=== PATIENT | female | born 1990 | race Caucasian/White ===

== ENCOUNTER → 2023-06-09 07:35 | Outpatient (CLI) | payer OTHER, SELFPAY ==
[2023-06-09 08:44] LABS: Add Manual Diff / Slide Review NO; Basophils Absolute Auto 0 /uL (0-100); Basophils Percent Auto 1.3 % (0-2); Eosinophils Absolute Auto 200 /uL (0-450); Eosinophils Percent Auto 6.8 % (2-4); Hematocrit 39.6 % (36-46); Hemoglobin 13.5 g/dL (12.0-16.0); Lymphocytes Absolute Auto 1700 /uL (1100-4500); Mean Corpuscular Hemoglobin 30.5 PG (26-34); Mean Corpuscular Volume 89.8 fL (80-100); Monocytes Absolute Auto 300 /uL (0-900); Neutrophils Absolute Auto 1300 /uL (1500-7000); Neutrophils Percent Auto 35.9 % (50-75); Platelet Count 226 X10^3/uL (150-400); Red Blood Cell Count 4.41 X10^6/uL (4.0-5.2); Red Cell Distribution Width 12.6 % (11.6-14.8); White Blood Cell Count 3.6 X10^3/uL (4.5-11.0)
[2023-06-09 09:05] LABS: Alanine Aminotransferase 12 IU/L (<35); Albumin 4.3 g/dL (3.5-5.0); Albumin Globulin Ratio 1.5 (1.0-2.8); Alkaline Phosphatase 66 U/L (38-126); Aspartate Aminotransferase 23 IU/L (14-36); Bilirubin Total 0.7 mg/dL (0.2-1.3); Blood Urea Nitrogen 16 mg/dL (7-17); Calcium 9.2 mg/dL (8.4-10.2); Carbon Dioxide 24 mmol/L (22-32); Chloride 107 mmol/L (98-107); Cholesterol 157 mg/dL (140-199); Estimated Glomerular Filt Rate > 60 mL/min (>60); Globulin 2.9 g/dL (1.7-4.1); Glucose 82 mg/dL (70-100); HDL Cholesterol 57 mg/dL (40-60); HEMOLYSIS < 15 (0-50); LDL Cholesterol Calculated 87 mg/dL (<100); Sodium 137 mmol/L (137-145); Total Protein 7.2 g/dL (6.3-8.2); Triglycerides 66 mg/dL (35-150)
[2023-06-09 09:06] LABS: Potassium 5.5 mmol/L (3.4-5.1)
== END ==
PROVIDERS: PCP Family Medicine; Referring Provider Family Medicine; Visit Provider Family Medicine
DX: Z76.89 Persons encountering health services in other specified circumstances (principal); Z13.9 Encounter for screening, unspecified
CPT/HCPCS: 36415; 80053; 80061; 84443; 85025

== ENCOUNTER → 2024-06-16 07:13 | Outpatient (CLI) | payer OTHER, SELFPAY ==
--- NOTE | 2024-06-16 07:14 | DI.US.S_ITS ---
PROCEDURE: US PELVIC COMPLETE INDICATIONS: fertility concern TECHNIQUE: Real-time scanning was performed of the pelvic organs, with image documentation. Additional endovaginal scanning was necessary due to incomplete visualization of the adnexal and endometrial structures by transabdominal scanning. COMPARISON: None. FINDINGS: Uterus: Uterus is anteverted and normal in size at 7.8 x 5.2 x 4.0 cm. The myometrium is homogeneous. The endometrium measures 7 mm combined thickness. Trilaminar appearance of the endometrium. Ovaries: The right ovary measures 3.3 x 2.6 x 2.1 cm, with a calculated ovarian volume of 9.4 cc. The left ovary measures 3.0 x 2.6 x 2.3 cm, with a calculated ovarian volume of 9.4 cc. The ovaries have a normal sonographic appearance. Greater than 12 follicles can be seen in each ovary. No adnexal masses are seen. Probable involuting 1.5 cm right ovarian corpus luteal cyst. Other: Trace pelvic free fluid is considered physiologic. IMPRESSION: Greater than 12 small follicles in each ovary, which can be seen in setting of polycystic ovarian syndrome when associated with appropriate clinical and laboratory findings. Approved by: Estrada Bardales M.D. on 06/16/2024 at 13:05
== END ==
PROVIDERS: PCP Family Medicine; Referring Provider Family Medicine; Visit Provider Family Medicine
DX: N97.9 Female infertility, unspecified (principal)
CPT/HCPCS: 76830; 76856

== ENCOUNTER → 2024-06-23 07:07 | Outpatient (CLI) | payer OTHER, SELFPAY ==
[2024-06-23 08:06] LABS: Hemoglobin A1C% w Est Avg Glu 4.8 % (4.0-6.0)
[2024-06-24 07:41] LABS: Insulin Level Total 7.1 uIU/mL (2.6-24.9)
[2024-07-07 08:41] LABS: Percent Free Testosterone 2.65 % (0.50-2.80); Testosterone Free 0.78 ng/dL (0.10-0.85); Testosterone Total 29.5 ng/dL (10.0-55.0)
== END ==
PROVIDERS: PCP Family Medicine; Referring Provider Family Medicine; Visit Provider Family Medicine
DX: E28.2 Polycystic ovarian syndrome (principal); Z13.1 Encounter for screening for diabetes mellitus
CPT/HCPCS: 36415; 83036; 83525; 84402; 84403

== ENCOUNTER → 2024-08-25 16:24 | Outpatient (CLI) | payer OTHER, SELFPAY ==
[2024-08-25 18:14] LABS: HCG Quantitative /Beta subunit < 2.39 mIU/mL
== END ==
LOC: LAB 16:26
PROVIDERS: PCP Family Medicine; Referring Provider Obstetrics & Gynecology; Visit Provider Obstetrics & Gynecology
DX: Z34.90 Encounter for supervision of normal pregnancy, unspecified, unspecified trimester (principal)
CPT/HCPCS: 36415; 84702

== ENCOUNTER → 2024-12-15 09:05 | Outpatient (CLI) | payer OTHER, SELFPAY ==
[2024-12-19 19:36] LABS: Gest Age on Col Date 16.0 weeks (.); OSBR Risk 1IN 181 (.)
== END ==
PROVIDERS: PCP Family Medicine; Referring Provider Obstetrics & Gynecology; Visit Provider Obstetrics & Gynecology
DX: Z36.0 Encounter for antenatal screening for chromosomal anomalies (principal)
CPT/HCPCS: 36415; 82105

== ENCOUNTER → 2025-01-19 06:51 | Outpatient (CLI) | payer OTHER, SELFPAY ==
--- NOTE | 2025-01-19 06:53 | DI.US.S_ITS ---
PROCEDURE: US OB >= 14 WEEKS FETUS INDICATIONS: anatomy scan- Di- Di twin gestation OUTSIDE/PRIOR DATING DATA: Last menstrual period (LMP): 08/24/2024? LMP-based estimated date of delivery (JOLIE): 05/31/2025? The calculations are made using the clinical JOLIE of 05/31/2025. TECHNIQUE: Real-time scanning was performed of the fetuses, with image documentation and biometric measurements. Endovaginal scanning: Not performed COMPARISON: None. FINDINGS: General: An intrauterine dichorionic-diamniotic twin is present, as evidenced by separate placentas, differing sexes, or an intervening membrane of greater than 2 mm. Maternal cervical canal: 2.6 cm long. Normal lower limit is 2.5 cm. FETUS A: Fetus is located on the maternal right side, and is in breech presentation. Largest amniotic fluid pocket: 3.6 cm; normal range is 2-8 cm. Placental position is posterior, without previa. heart rate: 143 beats per minute. biometrics: Biparietal diameter: 5.0 cm, 21 weeks 1 day Head circumference: 18.2 cm, 20 weeks 4 days Abdominal circumference: 16.0 cm, 21 weeks 1 day Femur length: 3.3 cm, 20 weeks 1 day Clinically estimated gestational age: 21 weeks 1 day Composite gestational age from present scan: 20 weeks 5 days Estimated weight and percentile: 372 g, 24th percentile Anatomic survey: Neuro: Ventricles are normal at less than 10 mm. Cisterna magna is normal at 3-11 mm. Cerebellum is normal in size and morphology. Nuchal skin fold: Normal at less than 6 mm between 14 and 21 weeks gestational age. Face: Nose and lips, facial profile are normal. Spine: No evidence for spina bifida. Heart: 4 chambered heart is present, with normal ventricular outflow tracts. Diaphragm: Diaphragm is intact. Stomach: Left-sided stomach is present. Kidneys: No hydronephrosis. Normal ranges are less than 5 mm in 2nd trimester, less than 7 mm in 3rd trimester. Cord: 3 vessel cord has orthotopic insertion. Bladder: Normal in size. Extremities: All 4 extremities are visualized. Sex: XY FETUS B: Fetus is located on the maternal left side, and is in vertex presentation. Largest amniotic fluid pocket: 3.1 cm; normal range is 2-8 cm. Placental position is anterior , without previa. heart rate: 131 beats per minute. biometrics: Biparietal diameter: 4.7 cm, 20 weeks 2 days Head circumference: 18.1 cm, 20 weeks 4 days Abdominal circumference: 15.4 cm, 20 weeks 4 days Femur length: 3.6 cm, 21 weeks 2 days Clinically estimated gestational age: 21 weeks 1 day Composite gestational age from present scan: 20 weeks 5 days Estimated weight and percentile: 381 g, 29th percentile Anatomic survey: Neuro: Ventricles are normal at less than 10 mm. Cisterna magna is normal at 3-11 mm. Cerebellum is normal in size and morphology. Nuchal skin fold: Normal at less than 6 mm between 14 and 21 weeks gestational age. Face: Nose and lips, facial profile are normal. Spine: No evidence for spina bifida. Heart: 4 chambered heart is present, with normal ventricular outflow tracts. Diaphragm: Diaphragm is intact. Stomach: Left-sided stomach is present. Kidneys: No hydronephrosis. Normal ranges are less than 5 mm in 2nd trimester, less than 7 mm in 3rd trimester. Cord: 3 vessel cord has orthotopic insertion. Bladder: Normal in size. Extremities: All 4 extremities are visualized. Sex: XX IMPRESSION: 1. Diamniotic dichorionic intrauterine living pregnancies at 20 weeks 5 days based on today's ultrasound. 2. Normal placenta and amniotic fluid. 3. Normal anatomic surveys. We strive to produce accurate, complete, and clear reports of imaging services. To assist us in improving patient care, this report was composed using standard report templates and voice recognition software. Therefore, it may contain abnormal punctuation, insertions and/or omissions. Occasional wrong-word or sound-alike substitutions may occur. Though we review the report and make efforts to correct it, we do recommend that the report be read carefully in proper context to recognize any text inaccuracies. Dictated by: Eliseo Martines M.D. on 01/19/2025 at 11:11 Approved by: Eliseo Martines M.D. on 01/19/2025 at 11:22
== END ==
PROVIDERS: PCP Family Medicine; Referring Provider Obstetrics & Gynecology; Visit Provider Obstetrics & Gynecology
DX: O30.042 Twin pregnancy, dichorionic/diamniotic, second trimester (principal); Z3A.20 20 weeks gestation of pregnancy
CPT/HCPCS: 76811; 76812

== ENCOUNTER 2025-02-02 18:34 | Observation (INO) | payer OTHER, SELFPAY ==
--- NOTE | 2025-02-02 19:50 | DI.US.S_ITS ---
PROCEDURE: US OB LIMITED INDICATIONS: EMILIANO; CERVICAL LENGTH OUTSIDE/PRIOR DATING DATA: Last menstrual period (LMP): Unknown. LMP-based estimated date of delivery (JOLIE): Not applicable. The calculations are made using the ultrasound JOLIE of May 31, 2025. TECHNIQUE: Real-time scanning was performed of the fetus, with image documentation. Endovaginal scanning: Performed COMPARISON: [facility], , US OB >= 14 WEEKS FETUS, 01/26/2025, 15:38. FINDINGS: Presentation: Breech. Maternal cervical length measures 2.2 cm (measured transvaginally) Twin dichorionic diamniotic intrauterine gestations. Twin A: Four-quadrant EMILIANO measuring 14.4 cm. Largest vertical pocket measures 5.4 cm. Placental position is posterior. heart rate measures 162 beats per minute. Twin B: Four-quadrant EMILIANO measures 11.6 cm. Largest vertical pocket measures 3.6 cm. Placental position is anterior. heart rate is 145 beats per minute. IMPRESSION: Twin living intrauterine gestations with estimated gestational age of approximately 23 weeks and 1 day. Maternal cervical length measures 2.2 cm. Four-quadrant EMILIANO for twin A measures 14.4 cm with largest vertical pocket measuring 5.4 cm. Four-quadrant EMILIANO for twin B measures 11.6 cm with largest vertical pocket measuring 3.6 cm. Ordering physician was present during examination. Dictated by: Juan Antonio Danielson M.D. on 02/02/2025 at 21:08 Approved by: Juan Antonio Danielson M.D. on 02/02/2025 at 21:15
--- NOTE | 2025-02-02 20:11 | PM.OBHP.IH.1 ---
OB HPI Date/Time Date of admission: 02/02/25 Date Patient Seen: 02/02/25 Time Patient Seen: 20:12 History of Present Condition Chief complaint: PC ref JOLIE Calculator Estimated Delivery Date Method Current WG Current Estimate 05/31/25 Ultrasound #1 23w 3d # 2 Estimated Gestational Age (weeks): 23w1d : 1 Narrative: Patient is a 34yo G1 @ 23w1d presents to L&D with concern of leaking fluid. Reports that when she was at work around 1500 she went to the bathroom and emptied her bladder. then shortly after she stood up she had a large gush of fluid that she feels certain was not from the bladder. She has had no continued leaking since then. denies ctx or vaginal bleeding. good movement x 2. care: good care Dating criteria OB: LMP confirmed by 1st trimester US Ultrasounds: normal mid trimester US Abnormal ultrasound findings: diamniotic dizygotic twins Obstetrical complications: none Medical complications OB: none Preadmission Labs Last OB Lab Results: Blood Type O Positive 11/10/24, 09:47 Antibody Screen Negative 11/10/24, 09:47 Hct, (36-46) 36.6 % 11/10/24, 09:47 Hgb, (12.0-16.0) 12.7 g/dL 11/10/24, 09:47 Hep Bs Antigen, (NEGATIVE) Negative s/c 11/10/24, 09:47 Hepatitis C Antibody, (NEGATIVE) Negative s/c 11/10/24, 09:47 Rubella Antibody, (>15) 25.8 IU/mL 11/10/24, 09:47 VZV IgG Antibody, (Non Reactive) Reactive 11/10/24, 09:47 Hemoglobin A1c, (4.0-6.0) 4.8 % 06/23/24, 07:16 Evaluation Evaluation Baseline heart rate: 145 Dilation: Closed Effacement: 40-50% station: -3 Position of cervix: mid Consistency: medium Araujo score: 3 PFSH Medical History (Updated 11/17/24 @ 12:40 by Ayaka Escudero DO) History of depressive symptoms Chicken pox Surgical History (Updated 11/02/24 @ 12:57 by Renea Burns RN) History of vein stripping (~2018) No pertinent past surgical history Family History (Updated 11/02/24 @ 12:46 by Renea Burns RN) Father Prediabetes Depression Alcoholism Mother Depression Hypothyroidism Sister Depression Grandmother Lung cancer Mental health problem Alcoholism Depression Grandfather Addiction Alcoholism Colon cancer Grandfather Bladder cancer Prostate cancer COPD (chronic obstructive pulmonary disease) Coronary artery disease Smoker Grandmother Atrial fibrillation Dementia Social History (System 06/09/23 @ 10:04 by Tomas Hearn) marital status: number of children: 0 household members: spouse lives independently: Yes caregiver/support person: No housing: house pets and animals: Yes (cat & dog) education level: other occupational status: employed special elian needs: No travel history: recent seatbelt use: always helmet use: Yes water heater temp set < 120 deg: Yes working smoke detector in home: Yes fire extinguisher in home: Yes carbon monox detector in home: Yes firearms in home: Yes firearms unloaded and locked: Yes do you feel safe at home: Yes second hand exposure: No alcohol intake: former substance use type: does not use during the past year weight has: remained stable well-balanced diet: daily or most days daily servings fruits/ve or more times/day caffeine: Yes (single cup coffee in AM usually, not recently) Type(s) of exercise: walking and regular exercise frequency: daily Meds Home Medications and Allergies Home Medications ?Medication ?Instructions ?Recorded ?Confirmed ?Type ondansetron 8 mg disintegrating 8 mg PO Q8H #30 tabs 10/26/24 12/15/24 Rx tablet L. crispatus, gasseri, jensenii, cap PO 11/02/24 12/15/24 History rhamnosus 5 billion cell capsule (Azo Vaginal Health Probiotic) vit no.95-ferrous 1 tab PO DAILY 11/02/24 12/15/24 History fumarate 28 mg-folic acid 800 mcg tablet ( Multivitamins) folic acid 1 mg tablet 1 mg PO DAILY #90 tabs 11/17/24 12/15/24 Rx progesterone micronized 100 mg 200 mg (2 x 100 mg) PO QPM 30 days 02/02/25 Rx capsule (Prometrium) #60 caps Allergies Allergy/AdvReac Type Severity Reaction Status Date / Time No Known Drug Allergies Allergy Unverified 12/15/24 08:11 OB Exam Narrative Exam Narrative: General- AAO x3, NAD cardio- RRR lungs- unlabored breathing abdomen- gravid, soft SSE- cervix appears closed with slight dilation at the external os, negative pooling SVE- 0.5/50/-3, mid position TVUS- cervical length- 2.2cm, no internal os dilation or funneling A- breech,EMILIANO- 14cm, active B- breech, EMILIANO- 11cm, active Assessment and Plan Assessment and Plan Assessment and Plan narrative: Patient is a 34yo G1 @ 23w1d with Di-Di twin gestation presents to L&D with concern of a gush of fluid. 1. Rule out PROM - Amnisure negative - SSE- no pooling - BSUS- Baby A- EMILIANO-14cm, Baby B- EMILIANO- 11cm - no evidence of rupture of membranes at this time. 2. Shortening cervix - cervix appears closed but softer and external os slightly visibly dilated on SSE - Cervical length- 2.2cm, no funneling and internal os appears closed - this is shortening compared to previous US on 01/19- 2.6cm - MFM fellow (Dr. Madison) consulted regarding management-- since the internal os is closed and patient not having active contractions or cramping plan to discharge home but patient will be contacted on Wednesday by MFM team at for outpatient consultation and close monitoring of cervical lengths. - will start vaginal progesterone now per MFM recs -- Rx Micronized progesterone 200mg sent to pharmacy- place 1 tab vaginally qhs. 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 dispo- dsicharge home, plan for MFM consultation at early next week reviewed strict labor precautions and ROM precautions Time-Based Coding :: [TOTAL MINUTES] spent with patient and on the chart (including review of chart, obtaining history, exam, reviewing outside data, placing orders, documenting exam and treatment plan, and counseling patient) on [DATE]. 60 minutes spent with evaluation, physical exam, and consultation with MFM team and coordination of care
== END 2025-02-02 21:12 | disposition home or self-care (01) ==
LOC: LABOR 18:36
PROVIDERS: Admitting Provider Obstetrics & Gynecology; PCP Family Medicine; Referring Provider Obstetrics & Gynecology; Visit Provider Obstetrics & Gynecology
DX: Z03.71 Encounter for suspected problem with amniotic cavity and membrane ruled out (principal); O26.872 Cervical shortening, second trimester; Z3A.23 23 weeks gestation of pregnancy
CPT/HCPCS: 76815; 84112; G0378; G0379

== ENCOUNTER → 2025-02-20 08:07 | Outpatient (CLI) | payer OTHER, SELFPAY ==
[2025-02-20 09:50] LABS: Hematocrit 34.8 % (36-46); Hemoglobin 12.0 g/dL (12.0-16.0)
[2025-02-20 10:30] LABS: GTT (PREG) 1 Hour PP 50gm Dose 122 mg/dL (76-139)
== END ==
PROVIDERS: Obstetrics & Gynecology; PCP Family Medicine; Referring Provider Family Medicine; Visit Provider Family Medicine
DX: Z13.0 Encounter for screening for diseases of the blood and blood-forming organs and certain disorders involving the immune mechanism (principal); Z13.1 Encounter for screening for diabetes mellitus
CPT/HCPCS: 36415; 82950; 85014; 85018